=== PATIENT | male | born 1960 | race Caucasian/White ===

== ENCOUNTER 2019-10-22 15:58 | Outpatient (CLI) | payer OTHER ==
[2019-10-22 17:32] LABS: APPEARANCE,SYNOVIAL FLUID CLOUDY; COLOR,SYNOVIAL FLUID RED; LYMPHOCYTES,SYNOVIAL FLUID 28 % (0-75); MONOCYTES,SYNOVIAL FLUID 10 % (0-0); NEUTROPHILS,SYNOVIAL FLUID 62 % (0-25); SYN RBC 52500 /CU MM (0); SYN WBC 2250 /CU MM (0-200)
[2019-10-22 17:33] LABS: SYNOVIAL FLUID CRYSTALS QT NO CRYSTALS SEEN
== END 2019-10-22 23:59 | disposition home or self-care (01) ==
LOC: LAB SPEC 15:58
PROVIDERS: ATTEND Orthopaedic Surgery
DX: M67.362 Transient synovitis, left knee (principal)
CPT/HCPCS: 87070; 89051; 89060

== ENCOUNTER 2023-03-07 15:19 | Inpatient (IN) | payer OTHER ==
[~2023-03-07] VITALS: Ht 172.7 cm; Wt 104.5 kg
[~2023-03-07 15:19] MED LIST: AMLO10TA13 PO; ASPI81TA53 PO; CELE-127 PO; EMPA10TA PO; FAMO40TA7 PO; FLUC200T93 PO; LINA5TAB4 PO; LOSA100T58 PO; METF-438 PO; METO-395 PO; TERA5CAP4 PO; TICA90TA PO; TRIA1TAB3 PO
[2023-03-07 15:59] LABS: BASOPHILS # (AUTO) 0.2 X10'3 (0-0.2); BASOPHILS % (AUTO) 1.8 % (0-1); EOSINOPHILS # (AUTO) 0.3 X10'3 (0-0.9); EOSINOPHILS % (AUTO) 2.8 % (0-6); HEMATOCRIT 43.9 % (42.0-52.0); HEMOGLOBIN 15.2 g/dl (14.0-17.9); LYMPHOCYTES # (AUTO) 1.1 X10'3 (1.1-4.8); LYMPHOCYTES % (AUTO) 11.8 % (21-51); MEAN CORPUSCULAR HEMOGLOBIN 31.8 PG (27.0-31.0); MEAN CORPUSCULAR HGB CONC 34.5 g/dL (33.0-36.5); MEAN CORPUSCULAR VOLUME 92.1 FL (78-98); MEAN PLATELET VOLUME 7.6 FL (7.4-10.4); MONOCYTES # (AUTO) 0.7 X10'3 (0-0.9); MONOCYTES % (AUTO) 8.1 % (2-12); NEUTROPHILS % (AUTO) 75.5 % (42-75); PLATELET COUNT 242 X10'3 (140-440); RED BLOOD COUNT 4.77 X10'6 (4.70-6.10); RED CELL DISTRIBUTION WIDTH 13.9 % (11.5-14.5); WHITE BLOOD COUNT 9.2 X10'3 (4.5-11.0)
[2023-03-07 16:04] LABS: ALANINE AMINOTRANSFERASE 32 U/L (12-78); ALBUMIN 4.2 G/DL (3.4-5.0); ALBUMIN/GLOBULIN RATIO 1.2 (1.1-1.5); ALKALINE PHOSPHATASE 68 IU/L (46-116); ANION GAP 11 (8-16); ASPARTATE AMINO TRANSFERASE 31 U/L (10-37); BILIRUBIN,TOTAL 0.4 MG/DL (0.1-1.0); BLOOD UREA NITROGEN 32 MG/DL (7-18); BUN/CREATININE RATIO 21.9 (10.0-20.0); CALCIUM 9.8 MG/DL (8.5-10.1); CHLORIDE 104 MMOL/L (99-107); CREATININE 1.46 MG/DL (0.60-1.10); GLUCOSE 126 MG/DL (70-104); POTASSIUM 4.4 MMOL/L (3.5-5.1); SODIUM 140 MMOL/L (135-145); TOTAL CARBON DIOXIDE 24.8 MMOL/L (24-32); TOTAL PROTEIN 7.8 G/DL (6.4-8.2); eCRCL 51 ML/MIN; eGFR 49 ML/MIN
[2023-03-07 16:12] LABS: PRO BRAIN NATRIURETIC PEPTIDE 2061 PG/ML (0-125)
[2023-03-07] MEDS ORDERED: aspirin 81mg tab.chew PO ONE (16:45)
[2023-03-07] MEDS ORDERED: nitroGLYCERIN 0.4mg SUBLingual tab SL PRN (16:45)
[2023-03-07] MEDS ORDERED: heparin 10,000 units/1 ML INJ IV ONE ×2 (17:35→18:15)
[2023-03-07] MEDS: heparin 25,000 UNIT/250ml bag 250 ML IV PRN (18:00)
[2023-03-07] MEDS ORDERED: potassium Cl 20 mEq SR tablet PO PRN ×2 (18:15)
[2023-03-07] MEDS ORDERED: magnesium 4gm in 100ml NS 100 ML IV PRN (18:15)
[2023-03-07] MEDS ORDERED: magnesium Cl slow-release 64mg tablet PO PRN (18:15)
[2023-03-07] MEDS ORDERED: acetaminophen 325mg tablet PO PRN (18:15)
[2023-03-07] MEDS ORDERED: DEXTROSE 15 GM of carb/4 tabs (each vial/BOTTLE has 4 tablets) PO PRN ×2 (18:15)
[2023-03-07] MEDS ORDERED: heparin 10,000 units/1 ML INJ IV PRN (18:15)
[2023-03-07] MEDS ORDERED: dextrose 50%-water 50ml dispensing syringe IV PRN ×2 (18:15)
[2023-03-07] MEDS ORDERED: potassium Cl 40MEQ/1/2NS 520ml 520 ML IV PRN (18:15)
[2023-03-07] MEDS ORDERED: magnesium 2GM in 50ml NS 50 ML IV PRN (18:15)
[2023-03-07] MEDS ORDERED: heparin 25,000 UNIT/250ml bag 250 ML IV PRN (18:15)
[2023-03-07] MEDS ORDERED: HYDROcodone/acetaminophen 5mg/325mg tablet PO PRN (18:15)
[2023-03-07] MEDS ORDERED: ondansetron/PF 4mg/2ml inj IV PRN (18:15)
[2023-03-07] MEDS ORDERED: insulin Lispro (HumaLOG) vial - multi-dose SQ SCH (18:15)
[2023-03-07] MEDS ORDERED: MESSAGE TO PHARMACY PO ONE (18:15)
[2023-03-07] MEDS ORDERED: morphine 2 MG/ML inj. syringe IV PRN (18:15)
[2023-03-07] MEDS ORDERED: glucagon, human recombinant 1mg kit SUBCUT PRN (18:15)
--- NOTE | 2023-03-07 18:27 | NUR ---
assumed care from yael murguia.
[2023-03-07] MEDS ORDERED: EZET10TA48 PO (18:32)
[2023-03-07] MEDS ORDERED: NITR0.4T51 (18:32)
[2023-03-07] MEDS ORDERED: DULA0.75 SQ (18:32)
[2023-03-07] MEDS: K and/or MAG REPLACEMENT MC SCH (18:34)
[2023-03-07 19:04] LABS: BASOPHILS % (AUTO) 0.6 % (0-1); EOSINOPHILS # (AUTO) 0.3 X10'3 (0-0.9); EOSINOPHILS % (AUTO) 3.5 % (0-6); HEMATOCRIT 44.9 % (42.0-52.0); HEMOGLOBIN 15.3 g/dl (14.0-17.9); LYMPHOCYTES # (AUTO) 1.7 X10'3 (1.1-4.8); MEAN CORPUSCULAR HEMOGLOBIN 31.8 PG (27.0-31.0); MEAN CORPUSCULAR HGB CONC 34.1 g/dL (33.0-36.5); MEAN CORPUSCULAR VOLUME 93.1 FL (78-98); MEAN PLATELET VOLUME 7.5 FL (7.4-10.4); MONOCYTES # (AUTO) 0.7 X10'3 (0-0.9); MONOCYTES % (AUTO) 8.4 % (2-12); NEUTROPHILS # (AUTO) 5.6 X10'3 (1.8-7.7); NEUTROPHILS % (AUTO) 67.5 % (42-75); PLATELET COUNT 222 X10'3 (140-440); RED BLOOD COUNT 4.82 X10'6 (4.70-6.10); RED CELL DISTRIBUTION WIDTH 13.9 % (11.5-14.5); WHITE BLOOD COUNT 8.3 X10'3 (4.5-11.0)
[2023-03-07 19:16] LABS: INR 1.1 INR; PROTHROMBIN TIME 11.9 SECONDS (9.0-12.0)
[2023-03-07 19:21] LABS: MAGNESIUM 2.1 MG/DL (1.5-2.4); POTASSIUM 4.3 MMOL/L (3.5-5.1)
[2023-03-07 19:29] LABS: APTT 77 SECONDS (22-32)
[2023-03-07] MEDS: atorvastatin 20mg tablet PO SCH (20:47)
[2023-03-07] MEDS: docusate sod 100mg capsule PO SCH (20:47)
[2023-03-07] MEDS: insulin glargine (Lantus) pen - multi-dose SQ SCH (20:48)
[2023-03-07 23:55] VITALS: BP 131/77; PULSE 69; RESP 15; TEMP 98.1; O2SAT 98
[2023-03-08] VITALS (15 sets, daily range): BP systolic 99–138; BP diastolic 56–87; PULSE 62–81; RESP 12–18; TEMP 97.1–98.8; O2SAT 96–100
[2023-03-08 03:37] LABS: ALANINE AMINOTRANSFERASE 24 U/L (12-78); ALBUMIN 3.7 G/DL (3.4-5.0); ALBUMIN/GLOBULIN RATIO 1.1 (1.1-1.5); ALKALINE PHOSPHATASE 59 IU/L (46-116); ANION GAP 10 (8-16); ASPARTATE AMINO TRANSFERASE 34 U/L (10-37); BASOPHILS # (AUTO) 0.1 X10'3 (0-0.2); BASOPHILS % (AUTO) 0.7 % (0-1); BILIRUBIN,TOTAL 0.4 MG/DL (0.1-1.0); BLOOD UREA NITROGEN 30 MG/DL (7-18); CALCIUM 9.8 MG/DL (8.5-10.1); CHLORIDE 104 MMOL/L (99-107); CREATININE 1.07 MG/DL (0.60-1.10); EOSINOPHILS # (AUTO) 0.2 X10'3 (0-0.9); EOSINOPHILS % (AUTO) 2.8 % (0-6); GLUCOSE 114 MG/DL (70-104); HEMATOCRIT 43.6 % (42.0-52.0); HEMOGLOBIN 14.8 g/dl (14.0-17.9); LYMPHOCYTES # (AUTO) 1.8 X10'3 (1.1-4.8); LYMPHOCYTES % (AUTO) 22.5 % (21-51); MEAN CORPUSCULAR HEMOGLOBIN 31.3 PG (27.0-31.0); MEAN CORPUSCULAR HGB CONC 33.9 g/dL (33.0-36.5); MEAN CORPUSCULAR VOLUME 92.3 FL (78-98); MEAN PLATELET VOLUME 7.7 FL (7.4-10.4); MONOCYTES # (AUTO) 0.8 X10'3 (0-0.9); MONOCYTES % (AUTO) 10.2 % (2-12); NEUTROPHILS # (AUTO) 5.2 X10'3 (1.8-7.7); NEUTROPHILS % (AUTO) 63.8 % (42-75); PHOSPHORUS 4.4 MG/DL (2.3-4.5); PLATELET COUNT 221 X10'3 (140-440); POTASSIUM 3.8 MMOL/L (3.5-5.1); RED BLOOD COUNT 4.72 X10'6 (4.70-6.10); RED CELL DISTRIBUTION WIDTH 14.1 % (11.5-14.5); SODIUM 138 MMOL/L (135-145); TOTAL CARBON DIOXIDE 24.3 MMOL/L (24-32); WHITE BLOOD COUNT 8.1 X10'3 (4.5-11.0); eCRCL 70 ML/MIN; eGFR 70 ML/MIN
[2023-03-08 03:59] LABS: INR 1.1 INR; PROTHROMBIN TIME 11.3 SECONDS (9.0-12.0)
[2023-03-08] MEDS: heparin 10,000 units/1 ML INJ IV PRN ×2 (04:31→12:51)
--- NOTE | 2023-03-08 06:32 | NUR ---
Problems reprioritized. Patient report given, questions answered & plan of care reviewed with Anita.
--- NOTE | 2023-03-08 06:55 | NUR ---
Patient in room PCU 3015. I have received report from Patsy RUTH and had the opportunity to ask questions and assume patient care. Pt awake and alert. realizes npo status. No CP at this time.Call light in reach.Hep GTT running at 1,00 units/Hr. Addendum: 03/08/23 at 0721 by Anita Blakely RN Amended: Links added.
[2023-03-08] MEDS: K and/or MAG REPLACEMENT MC SCH ×2 (08:00→20:06)
[2023-03-08] MEDS: docusate sod 100mg capsule PO SCH ×2 (08:04→20:14)
[2023-03-08] MEDS: amLODIPine 5mg tablet PO SCH (08:04)
[2023-03-08] MEDS: ticagrelor 90mg tablet PO SCH ×2 (08:04→20:14)
[2023-03-08] MEDS: metoprolol succinate 25mg (24-HOUR) SR. Tablet PO SCH (08:05)
[2023-03-08] MEDS: triamterene/HCTZ 37.5/25mg tablet PO SCH (08:05)
[2023-03-08] MEDS: ezetimibe 10mg tablet PO SCH (08:05)
[2023-03-08] MEDS: losartan 50mg tablet PO SCH (08:06)
[2023-03-08] MEDS: famotidine 20mg tablet PO SCH (08:06)
[2023-03-08] MEDS: atorvastatin 20mg tablet PO SCH (08:07)
[2023-03-08] MEDS: celeCOXIB 100mg capsule PO SCH ×2 (08:07→20:15)
[2023-03-08] MEDS: aspirin 81mg tab.chew PO SCH (09:01)
[2023-03-08] MEDS ORDERED: magnesium 4gm in 100ml NS 100 ML IV PRN (11:00)
[2023-03-08] MEDS ORDERED: magnesium 2GM in 50ml NS 50 ML IV PRN (11:00)
[2023-03-08] MEDS ORDERED: potassium Cl 20 mEq SR tablet PO PRN ×2 (11:00)
[2023-03-08] MEDS ORDERED: potassium Cl 40MEQ/1/2NS 520ml 520 ML IV PRN (11:00)
[2023-03-08] MEDS ORDERED: magnesium Cl slow-release 64mg tablet PO PRN (11:00)
[2023-03-08] MEDS: heparin 25,000 UNIT/250ml bag 250 ML IV PRN (12:50)
[2023-03-08] MEDS ORDERED: NUT.TX.IMP.RENAL FXN,LAC-REDUC (Nepro) 237 ML VANILLA PO SCH (13:00)
[2023-03-08] MEDS ORDERED: verapamil 2.5 mg/ml inj IV ONE (16:04)
[2023-03-08] MEDS ORDERED: LIDOcaine 1% (10mg/ml) 2ml vial ONE (16:04)
[2023-03-08] MEDS ORDERED: heparin 1,000unit/ml 10ml vial 10 ML ONE (16:05)
[2023-03-08] MEDS ORDERED: midazolam 1 mg/ML 2ml injection ONE (16:05)
[2023-03-08] MEDS ORDERED: fentaNYL/PF 50MCG/1 ML 2ML syringe ONE (16:05)
[2023-03-08] MEDS ORDERED: iohexol 350MG/ML 100ml bottle IV ONE ×2 (16:06→17:41)
--- NOTE | 2023-03-08 16:45 | NUR ---
Pt down to [employer]. Family following.
[2023-03-08] MEDS ORDERED: iohexol 350 MG/ML 50ML vial IV ONE (17:34)
[2023-03-08] MEDS ORDERED: aspirin 325mg tablet ONE (17:51)
[2023-03-08] MEDS ORDERED: ticagrelor 90mg tablet ONE (17:51)
[2023-03-08] MEDS ORDERED: ondansetron/PF 4mg/2ml inj ONE (17:59)
--- NOTE | 2023-03-08 18:26 | NUR ---
Problems reprioritized. Patient report given, questions answered & plan of care reviewed with Edward RUTH. Pt just returned from [facility]. Radial band in place on right wrist. No bleeding.Good color to hand. Family at bedside. Addendum: 03/08/23 at 1828 by Anita Blakely RN Amended: Links added.
--- NOTE | 2023-03-08 19:10 | NUR ---
Patient in room PCU 3015. I have received report from Anita and had the opportunity to ask questions and assume patient care.
[2023-03-08] MEDS ORDERED: K and/or MAG REPLACEMENT MC SCH (20:00)
[2023-03-08] MEDS ORDERED: terazosin 5mg capsule PO SCH (21:00)
[2023-03-08] MEDS: insulin glargine (Lantus) pen - multi-dose SQ SCH (21:00)
[2023-03-09 02:00] VITALS: BP 114/72; PULSE 64; RESP 12; TEMP 97.4; O2SAT 98
[2023-03-09 06:00] VITALS: BP 117/72; PULSE 61; RESP 14; TEMP 97.5; O2SAT 98
--- NOTE | 2023-03-09 06:10 | NUR ---
Problems reprioritized. Patient report given, questions answered & plan of care reviewed with Anita.
--- NOTE | 2023-03-09 06:32 | NUR ---
Patient in room PCU 3015. I have received report from Edward RUTH and had the opportunity to ask questions and assume patient care.Pt sleeping, No distress. R Radial cath site without issues. Addendum: 03/09/23 at 0633 by Anita Blakely RN Amended: Links added.
[2023-03-09 07:55] VITALS: RESP 14; O2SAT 98
[2023-03-09] MEDS: docusate sod 100mg capsule PO SCH (07:55)
[2023-03-09] MEDS: triamterene/HCTZ 37.5/25mg tablet PO SCH (07:56)
[2023-03-09] MEDS: celeCOXIB 100mg capsule PO SCH (07:56)
[2023-03-09] MEDS: aspirin 81mg tab.chew PO SCH (07:57)
[2023-03-09] MEDS: metoprolol succinate 25mg (24-HOUR) SR. Tablet PO SCH (07:57)
[2023-03-09] MEDS: famotidine 20mg tablet PO SCH (07:57)
[2023-03-09] MEDS: atorvastatin 20mg tablet PO SCH (07:58)
[2023-03-09] MEDS: ticagrelor 90mg tablet PO SCH (07:59)
[2023-03-09] MEDS: ezetimibe 10mg tablet PO SCH (07:59)
[2023-03-09 08:00] VITALS: BP_SYST 117; PULSE 61
[2023-03-09] MEDS: amLODIPine 5mg tablet PO SCH (08:00)
[2023-03-09] MEDS: K and/or MAG REPLACEMENT MC SCH (08:00)
[2023-03-09] MEDS: losartan 50mg tablet PO SCH (08:00)
[2023-03-09 08:13] LABS: BASOPHILS # (AUTO) 0.1 X10'3 (0-0.2); BASOPHILS % (AUTO) 0.7 % (0-1); EOSINOPHILS # (AUTO) 0.2 X10'3 (0-0.9); EOSINOPHILS % (AUTO) 1.9 % (0-6); HEMATOCRIT 44.1 % (42.0-52.0); LYMPHOCYTES # (AUTO) 1.1 X10'3 (1.1-4.8); LYMPHOCYTES % (AUTO) 13.2 % (21-51); MEAN CORPUSCULAR HEMOGLOBIN 31.7 PG (27.0-31.0); MEAN CORPUSCULAR VOLUME 93.1 FL (78-98); MEAN PLATELET VOLUME 7.7 FL (7.4-10.4); MONOCYTES # (AUTO) 0.8 X10'3 (0-0.9); MONOCYTES % (AUTO) 10.2 % (2-12); PLATELET COUNT 219 X10'3 (140-440); RED BLOOD COUNT 4.74 X10'6 (4.70-6.10); RED CELL DISTRIBUTION WIDTH 13.7 % (11.5-14.5); WHITE BLOOD COUNT 8.1 X10'3 (4.5-11.0)
[2023-03-09 08:34] LABS: ALANINE AMINOTRANSFERASE 31 U/L (12-78); ALBUMIN 3.6 G/DL (3.4-5.0); ALBUMIN/GLOBULIN RATIO 1.1 (1.1-1.5); ALKALINE PHOSPHATASE 65 IU/L (46-116); ANION GAP 8 (8-16); ASPARTATE AMINO TRANSFERASE 47 U/L (10-37); BILIRUBIN,TOTAL 0.5 MG/DL (0.1-1.0); BLOOD UREA NITROGEN 27 MG/DL (7-18); BUN/CREATININE RATIO 22.5 (10.0-20.0); CALCIUM 9.9 MG/DL (8.5-10.1); CHLORIDE 102 MMOL/L (99-107); CHOL/HDL RATIO 2.1 (0.00-4.99); CHOLESTEROL 64 MG/DL (0-200); GLUCOSE 119 MG/DL (70-104); HDL CHOLESTEROL 30 MG/DL (35-60); LDL CHOLESTEROL 25 MG/DL (50-100); PHOSPHORUS 4.7 MG/DL (2.3-4.5); POTASSIUM 4.8 MMOL/L (3.5-5.1); SODIUM 137 MMOL/L (135-145); TOTAL CARBON DIOXIDE 27.3 MMOL/L (24-32); TRIGLYCERIDES 90 MG/DL (20-135); eCRCL 63 ML/MIN; eGFR 62 ML/MIN
[2023-03-09 08:48] LABS: APTT 26 SECONDS (22-32); INR 1.1 INR; PROTHROMBIN TIME 11.4 SECONDS (9.0-12.0)
[2023-03-09] MEDS ORDERED: ATOR20TA66 PO (10:19)
[2023-03-09] MEDS ORDERED: NITR0.4T51 SL (11:21)
[2023-03-09] MEDS ORDERED: ATOR-2 PO (11:38)
--- NOTE | 2023-03-09 11:50 | NUR ---
All written and verbal orders for D/C given. All questions answered. Pt stated he had all belongings, Home with . Addendum: 03/09/23 at 1150 by Anita Blakely RN Amended: Links added.
== END 2023-03-09 12:00 | disposition home or self-care (01) | DRG 246 ==
LOC: ER 15:20 → ED HOLD 18:22 → PCU 3S 23:50
PROVIDERS: ADMIT Family Medicine; ATTEND Family Medicine
PROC: 027034Z Dilation of Coronary Artery, One Artery with Drug-eluting Intraluminal Device, Percutaneous Approach (ICD-10-PCS; principal; 2023-03-08)
PROC: 4A023N7 Measurement of Cardiac Sampling and Pressure, Left Heart, Percutaneous Approach (ICD-10-PCS; 2023-03-08)
PROC: B2111ZZ Fluoroscopy of Multiple Coronary Arteries using Low Osmolar Contrast (ICD-10-PCS; 2023-03-08)
DX: I21.4 Non-ST elevation (NSTEMI) myocardial infarction (principal); N17.0 Acute kidney failure with tubular necrosis; I10 Essential (primary) hypertension; E78.5 Hyperlipidemia, unspecified; I25.119 Atherosclerotic heart disease of native coronary artery with unspecified angina pectoris; E11.9 Type 2 diabetes mellitus without complications; I25.2 Old myocardial infarction; Z95.5 Presence of coronary angioplasty implant and graft; Z88.8 Allergy status to other drugs, medicaments and biological substances; Z79.899 Other long term (current) drug therapy; Z79.82 Long term (current) use of aspirin
CPT/HCPCS: 93458; 96374; 99285; C9600; 36415; 71045; 80053; 80061; 82948; 83735; 83880; 84100; 84132; 84484; 85025; 85347; 85610; 85730; 87081; 93005; 99152; 99153; A6258; A6402; C1725; C1751; C1769; C1874; C1894; G0378; J1644; J1815; J2250; J2405; J3010; J3490; J7030; Q9967

== ENCOUNTER 2023-10-26 05:08 | Emergency (ER) | payer OTHER ==
[~2023-10-26] VITALS: Ht 175.3 cm; Wt 100.0 kg
[~2023-10-26 05:08] MED LIST changes: +ATOR-2 PO; +DULA0.75 SQ; +EZET10TA48 PO; +NITR0.4T51
[2023-10-26 05:11] VITALS: TEMP 98.5
[2023-10-26 07:04] LABS: BASOPHILS % (AUTO) 0.6 % (0-1); EOSINOPHILS # (AUTO) 0.1 X10'3 (0-0.9); EOSINOPHILS % (AUTO) 1.6 % (0-6); HEMATOCRIT 48.3 % (42.0-52.0); HEMOGLOBIN 16.5 g/dl (14.0-17.9); LYMPHOCYTES # (AUTO) 1.1 X10'3 (1.1-4.8); LYMPHOCYTES % (AUTO) 16.2 % (21-51); MEAN CORPUSCULAR HEMOGLOBIN 32.5 PG (27.0-31.0); MEAN CORPUSCULAR HGB CONC 34.1 g/dL (33.0-36.5); MEAN CORPUSCULAR VOLUME 95.3 FL (78-98); MEAN PLATELET VOLUME 7.8 FL (7.4-10.4); MONOCYTES # (AUTO) 0.4 X10'3 (0-0.9); MONOCYTES % (AUTO) 6.5 % (2-12); NEUTROPHILS # (AUTO) 4.9 X10'3 (1.8-7.7); NEUTROPHILS % (AUTO) 75.1 % (42-75); PLATELET COUNT 162 X10'3 (140-440); RED BLOOD COUNT 5.06 X10'6 (4.70-6.10); RED CELL DISTRIBUTION WIDTH 13.5 % (11.5-14.5); WHITE BLOOD COUNT 6.6 X10'3 (4.5-11.0)
[2023-10-26 07:19] LABS: ALBUMIN 3.5 G/DL (3.4-5.0); ANION GAP 8 (8-16); BLOOD UREA NITROGEN 19 MG/DL (7-18); BUN/CREATININE RATIO 17.9 (10.0-20.0); CALCIUM 9.3 MG/DL (8.5-10.1); CHLORIDE 106 MMOL/L (99-107); CREATININE 1.06 MG/DL (0.60-1.10); GLUCOSE 154 MG/DL (70-104); POTASSIUM 5.5 MMOL/L (3.5-5.1); PRO BRAIN NATRIURETIC PEPTIDE 350 PG/ML (0-125); SODIUM 141 MMOL/L (135-145); eCRCL 73 ML/MIN; eGFR 71 ML/MIN
[2023-10-26 09:38] VITALS: BP 117/81; PULSE 83; RESP 16; O2SAT 98
== END 2023-10-26 09:42 | disposition home or self-care (01) ==
LOC: ER 05:09
DX: R07.89 Other chest pain (principal); R91.8 Other nonspecific abnormal finding of lung field; Z88.8 Allergy status to other drugs, medicaments and biological substances; I25.10 Atherosclerotic heart disease of native coronary artery without angina pectoris; I10 Essential (primary) hypertension; I25.2 Old myocardial infarction; E11.9 Type 2 diabetes mellitus without complications; Z98.890 Other specified postprocedural states
CPT/HCPCS: 36415; 71045; 71250; 80048; 83880; 84484; 85025; 93005; 99285